=== PATIENT | female | born 1965 | race Caucasian/White ===

== ENCOUNTER 2017-11-07 17:45 | Inpatient (IN) | payer BC ==
[~2017-11-07] VITALS: Ht 162.6 cm; Wt 77.1 kg
--- NOTE | 2017-11-07 17:54 | NUR ---
PT WAS BROUGHT IN BY AMBULANCE W/CC OF OVERDOSE. 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 PT STATED SHE WANTED TO KILL HERSELF AND THAT'S WHY SHE TOOK THE PILLS". PT DROWSY BUT AROUSABLE. PT ALSO COOPERATIVE AND FOLLOWING COMMANDS. SEIZURE AND SUICIDE PRECAUTIONS INITIATED. PERSONAL BELONGINGS REMOVED AND STORED IN RADIO ROOM. [employer] OFFICER GUILLERMO COMPLETED 5150 HOLD. PT GOWNED AND PLACED ON DENTIST. EKG IN PROGRESS. PT AWAITING MSE. WILL CONTINUE TO MONITOR.
--- NOTE | 2017-11-07 18:02 | NUR ---
SPOKE W/PA FROM POISON CONTROL. 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 HOWEVER, IF SHE TOOK THE 50MG PILLS, THEN WE NEED TO MONITOR FOR STRINGING MACHINE OPERATOR DEPRESSION, SHE'S AT HIGHER RISK OF SEIZURES AND QRS WIDENING. IF SHE'S ALERT ENOUGH TO DRINK CHARCOAL, GO AHEAD AND ADMINISTER THAT. OTHERWISE, PLACE HER ON PSYCHOLOGY TECHNICIAN FOR AT LEAST 6HRS, SEIZURE PRECAUTIONS AND TREAT WITH BENZODIAZEPINES IF SHE DOES EXPERIENCE A SEIZURE. ALSO IF HER QRS WIDENING IS MORE THAN 120 MILISECONDS, GO AHEAD AND BOLUS W/SODIUM BICARB. DO AN EKG AND REPEAT IN 4 HOURS".
--- NOTE | 2017-11-07 18:29 | NUR ---
MEDICATE ORDERED. PLEASE SEE EMR. JOSE BRANDO AT BEDSIDE. PT NONVERBAL AT THIS POINT. WILL CONTINUE TO MONITOR.
[2017-11-07 19:05] LABS: BASOPHIL % 1.6 % (0-2)
--- NOTE | 2017-11-07 19:10 | NUR ---
REPORT GIVEN TO RUTHANN LEE FOR CONTINUATION OF CARE PRIMARY RN. JESUS MADE AWARE TO DOCUMENT IV FLUID END TIMES WHEN COMPLETED.
[2017-11-07 19:12] LABS: PLATELET COUNT 491 x10^3mcL (130-400)
[2017-11-07 19:16] LABS: CALCIUM 8.5 mg/dL (8.5-10.1); CHLORIDE SERUM 105 mmol/L (98-107); CREATININE SERUM 0.7 mg/dL (0.6-1.0); GFR1 > 60 mL/min; GLUCOSE SERUM 78 mg/dL (74-106); POTASSIUM SERUM 3.3 mmol/L (3.5-5.1); SODIUM SERUM 145 mmol/L (136-145)
--- NOTE | 2017-11-07 19:16 | NUR ---
RECEIEVED REPORT FROM ROBBY BEAVERS. PT RESTING IN BED, AT BEDSIDE PROVIDING COMFORT. PT RESP E/U, NO DISTRESS NOTED. PT HAS NOT YET SPOKEN BUT CONTINUES TO OPEN EYES SPONTANEOUSLY AND OPEN EYES TO NAME. PT HAS BANANA BAG RUNNING, IV SITE CLEAN, DRY, AND INTACT. PT IN DIRECT SUPERVISION OF NURSES STATION, BED IN LOWEST POSITION, SEIZURE PADS IN PLACE. WILL CONTINUE WITH CURRENT PLAN OF CARE.
[2017-11-07 19:25] LABS: ALBUMIN 3.6 g/dL (3.4-5.0); ALKALINE PHOSPHATASE 98 U/L (46-116); ALT/SGPT 42 U/L (14-59); AST/SGOT 49 U/L (15-37); BILIRUBIN TOTAL 0.1 mg/dL (0.20-1.00); TOTAL PROTEIN, SERUM 7.1 g/dL (6.4-8.2)
--- NOTE | 2017-11-07 19:55 | NUR ---
DR HERNANDEZ CALLED WITH ADMIT ORDERS.
--- NOTE | 2017-11-07 20:01 | NUR ---
PT BECOMING MORE RESPONSIVE AND ATTEMPTING TO SPEAK.
--- NOTE | 2017-11-07 20:03 | NUR ---
PT FAMILY AT BEDSIDE REPORTS PT TAKE TWO UNKNOWN MEDICATIONS FOR DEPRESSION EVERY MORNNING. PT WILL BRING THEM IN.
--- NOTE | 2017-11-07 21:04 | NUR ---
GUSTAVO FROM POISON CONTROL CALLED FOR AN UPDATE AND REQUESTING LAB VALUES. GUSTAVO REPORTS THAT THE PEAK ONSET OF THE BENADRY WOULD BE AROUND NOW, CONTINUE TO MONITOR AND REPEAT EKG NEEDED. PER POISON CONTROL, IF PT IS TO BECOME AGITATED USE BENZODIAZIPINES TO CALM PT. ALSO WATCH FOR DECREASED GUT MOTILITY AND SLOWED GI FUNCTION A RESULT OF BENADRYL OVERDOSE.
--- NOTE | 2017-11-07 21:25 | NUR ---
PT SPOUSE MATT MEDICATIONS AND THE BOTTLE OF BENADRYL PT USED. VERIFIED PILLS WERE 25 MGS EACH.
[2017-11-07] MEDS ORDERED: WELLBUTRIN XL300 M1 PO (21:41)
[2017-11-07] MEDS ORDERED: CYMBALTA60 M1 PO (21:42)
[2017-11-07] MEDS ORDERED: LAMOTRIGINE100 M1 PO (21:42)
[2017-11-07] MEDS ORDERED: NATURE'S BLEND F1 MG PO (21:42)
[2017-11-07] MEDS ORDERED: B-1100 MG PO (21:42)
--- NOTE | 2017-11-07 21:43 | NUR ---
PT BECOMING MORE ALERT, ABLE TO RESPOND WITH SHORT ANSWERS, HOWEVER, BECOMES EASILY DISTRACTED.
--- NOTE | 2017-11-07 22:26 | NUR ---
REPORT CALLED TO RITO BEAVERS TO ASSUME CARE OF PT POST TRANSFER TO TELE UNIT.
[2017-11-07 22:36] VITALS: BP 182/90
--- NOTE | 2017-11-07 23:14 | NUR ---
RECIEVED FROM ER DEPT VIA RONALDO ACCOMPANIED BY ER NURSES WITH CHIEF COMPLAINTS OF BENADRYL OVERDOSAGE/DROWSY UPON ADMISSION TO THE UNIT. PLACED COMFORTABLY IN BED. ROUTINE ADMISSION CARE RENDERED VITAL SIGNS TAKEN AND RECORDED. ON TELE #[address] AT 108/MIN. PATIENT ALERT AND VERBALLY RESPONSIVE, DENEIS ANY PAIN/DISCOMFORT AT THIS TIME, HISBAND AT BEDSIDE VERY SUPPORTIVE OF PATIENT'S PLAN OF CARE. ON 1.1 SITTER, STARTED ON IVF D5NS AT 80CC/HR INFUSING VIA PERIPHERAL LINE AT THE RIGHT FOREARM TOLERATING WELL. WILL CONTINUE TO MONITOR.
--- NOTE | 2017-11-08 01:30 | NUR ---
URINE SPECIMEN COLLECTED FOR UA/UDS AND SENT TO LAB. GORDON PERICARE RENDERED. WILL CONTINUE TO MONITOR.
[2017-11-08 02:44] LABS: UA SPECIFIC GRAVITY 1.015 (1.005-1.035); microscopic required? YES; urine erythrocyte NEGATIVE (NEGATIVE)
[2017-11-08 02:46] LABS: AMPHETAMINE QUAL UR NONE DETECTED (NEG <=1000)
[2017-11-08 05:36] VITALS: BP 167/85
--- NOTE | 2017-11-08 06:21 | NUR ---
UA SHOWS MANY BACTERIA WITH TRACED LEUKOCYTE ESTEARASE, POTASSIUM LEVEL=3.3, DR MARK FOREMAN WAS CALLED [phone], AWAITNG FOR RETURN CALL. PT STILL WITH EPISODES OF ANXIETY/RESTLESSNESS, ATIVAN NOT WORKING, MAINTAINED ON 1;1 SITTER. WILL CONTINUE TO MONITOR.
--- NOTE | 2017-11-08 06:26 | NUR ---
WAS CALLED AGAIN, ABLE TO TALK TO ROB, AND WILL PAGE AGAIN.
--- NOTE | 2017-11-08 06:53 | NUR ---
DR HERNANDEZ CALLED BACK , WITH ORDERED [facility] TO/READ BACK, BUT [facility] [place]OW[place] TO [place]/READBACK , MADE AWARE AND STATED TO TELL DR. HUBBARD TODAY WHEN HE WILL MAKE HIS ROUND. WILL ENDORSE TO AM RN TO FOLLOW UP.
--- NOTE | 2017-11-08 07:15 | NUR ---
PT IN LOW FOELRS. AWAKE, COOPERATIVE OF CARE. UNDER CLOSE OBSERVATION, PT ABLE TO VERBALIZE NEEDS. IV INFUSING WELL D5NS 80ML/HR TO RAC #20. CALL LIGHT WITHIN REACH.
[2017-11-08 09:48] VITALS: BP 153/82
[2017-11-08 10:17] LABS: CALCIUM 8.5 mg/dL (8.5-10.1); CARBON DIOXIDE 24.1 mmol/L (21-32); CHLORIDE SERUM 106 mmol/L (98-107); CREATININE SERUM 0.7 mg/dL (0.6-1.0); GFR1 > 60 mL/min; GLUCOSE SERUM 90 mg/dL (74-106); MAGNESIUM 2.5 mg/dL (1.8-2.4); POTASSIUM SERUM 3.2 mmol/L (3.5-5.1); SODIUM SERUM 142 mmol/L (136-145)
[2017-11-08 10:22] LABS: BASOPHIL % 1.2 % (0-2); PLATELET COUNT 382 x10^3mcL (130-400)
[2017-11-08 10:26] LABS: RED CELL DISTRIBUTION WIDTH 20.2 % (11.5-14.5)
[2017-11-08 10:27] LABS: rbc morphology (normal/abnorm) ABNORMAL (NORMAL)
--- NOTE | 2017-11-08 11:30 | NUR ---
DR. MCDONALD MADE AWARE OF POTASSIUM: 3.2; AND UA RESULTS.
--- NOTE | 2017-11-08 16:15 | NUR ---
CALLED TO AND TOLD THAT SAW PATIENT AND READ TO HIM THE PROGRESS NOTES. HE STATED OKAY TO DISCHARGE PATIENT AND FOLLOW UP WITH HER PCP AND TO CONTINUE HER HOME MEDS.
[2017-11-08 16:33] VITALS: BP 153/82
--- NOTE | 2017-11-08 16:50 | NUR ---
DISCHARGE INSTRUCTIONS GIVEN TO PT AND . BOTH VERBALIZED UNDERSTANDING, IV DC'D CATHETER INTACT. TELE BOX REMOVED. PT ESCORTED OUT OF UNIT SAFELY.
== END 2017-11-08 17:01 | disposition home or self-care (01) | DRG 885 ==
LOC: ED 17:45 → DU 19:57
PROVIDERS: Emergency Medicine; ADMIT Internal Medicine Pulmonary Disease
DX: F33.1 Major depressive disorder, recurrent, moderate (principal); T45.0X2A Poisoning by antiallergic and antiemetic drugs, intentional self-harm, initial encounter; E87.6 Hypokalemia; F10.20 Alcohol dependence, uncomplicated; T51.0X2A Toxic effect of ethanol, intentional self-harm, initial encounter; Y92.018 Other place in single-family (private) house as the place of occurrence of the external cause; Z98.84 Bariatric surgery status
CPT/HCPCS: 83880; G0480; J2060; J3411; J3475; J3490; J7030; J7042

== ENCOUNTER 2018-05-03 23:56 | Inpatient (IN) | payer BC ==
[~2018-05-03] VITALS: Ht 165.1 cm; Wt 74.8 kg
[~2018-05-03 23:56] MED LIST: B-1100 MG PO; CYMBALTA60 M1 PO; LAMOTRIGINE100 M1 PO; NATURE'S BLEND F1 MG PO; WELLBUTRIN XL300 M1 PO
[2018-05-04] VITALS: Ht 165.1 cm; Wt 74.8 kg
[2018-05-04 00:29] LABS: BASOPHIL % 1.4 % (0-2); PLATELET COUNT 386 x10^3mcL (130-400)
[2018-05-04 00:33] LABS: RED CELL DISTRIBUTION WIDTH 19.9 % (11.5-14.5)
[2018-05-04 00:42] LABS: CALCIUM 8.6 mg/dL (8.5-10.1); CARBON DIOXIDE 23.4 mmol/L (21-32); CHLORIDE SERUM 106 mmol/L (98-107); CREATININE SERUM 0.6 mg/dL (0.6-1.0); GFR1 > 60 mL/min; GLUCOSE SERUM 91 mg/dL (74-106); SODIUM SERUM 143 mmol/L (136-145)
[2018-05-04 00:56] LABS: ALKALINE PHOSPHATASE 95 U/L (46-116); ALT/SGPT 45 U/L (14-59); AST/SGOT 56 U/L (15-37); BILIRUBIN TOTAL 0.3 mg/dL (0.20-1.00); TOTAL PROTEIN, SERUM 6.6 g/dL (6.4-8.2)
[2018-05-04 00:57] LABS: ALBUMIN 3.3 g/dL (3.4-5.0)
[2018-05-04] MEDS ORDERED: CYMBALTA60 M1 PO (03:05)
[2018-05-04] MEDS ORDERED: CYMBALTA20 M1 PO (03:07)
[2018-05-04] MEDS ORDERED: LAMICTAL150 MG PO (03:07)
[2018-05-04] MEDS ORDERED: LATANOPROST2.5 ML OU (03:08)
[2018-05-04] MEDS ORDERED: LEXAPRO10 MG (03:08)
[2018-05-04 04:04] LABS: T3 TOTAL 0.96 ng/mL
[2018-05-04 04:26] LABS: PHOSPHOROUS 2.4 mg/dL (2.5-4.9)
[2018-05-04 04:30] LABS: CHOLESTEROL/HDL RATIO 2.3
[2018-05-04 04:40] LABS: FREE T4 0.86 ng/dL (0.76-1.46); FREE THYROXINE INDEX 2.3 ug/dL (1.4-4.5); T4(THYROXINE) 6.7 ug/dL (4.7-13.3)
[2018-05-04 08:05] VITALS: BP 141/76
[2018-05-04 11:40] VITALS: BP 122/63
[2018-05-04 15:46] VITALS: BP 122/80
[2018-05-04 22:36] VITALS: BP 141/63
[2018-05-05 05:36] VITALS: BP 122/63
[2018-05-05 06:26] LABS: CALCIUM 9.1 mg/dL (8.5-10.1); CARBON DIOXIDE 27.4 mmol/L (21-32); CHLORIDE SERUM 108 mmol/L (98-107); CREATININE SERUM 0.6 mg/dL (0.6-1.0); GFR1 > 60 mL/min; GLUCOSE SERUM 85 mg/dL (74-106); MAGNESIUM 2.3 mg/dL (1.8-2.4); PHOSPHOROUS 3.6 mg/dL (2.5-4.9); POTASSIUM SERUM 3.6 mmol/L (3.5-5.1); SODIUM SERUM 144 mmol/L (136-145)
[2018-05-05 07:19] LABS: BASOPHIL % 0.8 % (0-2); PLATELET COUNT 317 x10^3mcL (130-400)
[2018-05-05 07:20] LABS: RED CELL DISTRIBUTION WIDTH 19.1 % (11.5-14.5)
[2018-05-05 09:30] VITALS: BP 130/63
[2018-05-05 13:30] VITALS: BP 139/50
[2018-05-05] MEDS ORDERED: XARELTO20 M1 PO (15:59)
[2018-05-05] MEDS ORDERED: METOPROLOL TART25 M1 PO (16:01)
[2018-05-05] MEDS ORDERED: LIPI10 PO (16:01)
[2018-05-05 16:16] VITALS: BP 139/50
== END 2018-05-05 16:40 | disposition home or self-care (01) | DRG 309 ==
LOC: ED 23:56 → IC 05-04 02:16 → DU 05-04 16:32
PROVIDERS: Emergency Medicine; Family Medicine
DX: I48.91 Unspecified atrial fibrillation (principal); E44.1 Mild protein-calorie malnutrition; F32.9 Major depressive disorder, single episode, unspecified; H40.9 Unspecified glaucoma; I10 Essential (primary) hypertension; F10.20 Alcohol dependence, uncomplicated; Y90.9 Presence of alcohol in blood, level not specified; F17.210 Nicotine dependence, cigarettes, uncomplicated; I16.0 Hypertensive urgency; E78.5 Hyperlipidemia, unspecified; E02 Subclinical iodine-deficiency hypothyroidism; Z53.29 Procedure and treatment not carried out because of patient's decision for other reasons; Z68.27 Body mass index [BMI] 27.0-27.9, adult; Z88.0 Allergy status to penicillin; Z98.84 Bariatric surgery status; Z90.710 Acquired absence of both cervix and uterus; Z90.49 Acquired absence of other specified parts of digestive tract; Z83.3 Family history of diabetes mellitus; Z82.49 Family history of ischemic heart disease and other diseases of the circulatory system; Z80.9 Family history of malignant neoplasm, unspecified; Z71.41 Alcohol abuse counseling and surveillance of alcoholic
CPT/HCPCS: 83880; 84439; J2060; J3490; J7030; J7040; Q0092

== ENCOUNTER 2018-06-05 12:26 | Inpatient (IN) | payer BC ==
[~2018-06-05] VITALS: Ht 162.6 cm; Wt 85.0 kg
[2018-06-05] VITALS (14 sets, daily range): BP systolic 107–170; BP diastolic 51–104
[~2018-06-05 12:26] MED LIST changes: +CYMBALTA20 M1 PO; +LAMICTAL150 MG PO; +LATANOPROST2.5 ML OU; +LEXAPRO10 MG; +LIPI10 PO; +METOPROLOL TART25 M1 PO; +XARELTO20 M1 PO
[2018-06-05 13:10] LABS: microscopic required? NO
[2018-06-05 13:18] LABS: urine erythrocyte NEGATIVE (NEGATIVE)
[2018-06-05 13:44] LABS: AMPHETAMINE QUAL UR NONE DETECTED (See below)
[2018-06-05 13:50] LABS: BASOPHIL % 0.9 % (0-2)
[2018-06-05 13:54] LABS: PLATELET COUNT 557 x10^3mcL (130-400); RED CELL DISTRIBUTION WIDTH 18.6 % (11.5-14.5)
[2018-06-05 13:59] LABS: CALCIUM 8.7 mg/dL (8.5-10.1); CARBON DIOXIDE 22.7 mmol/L (21-32); CHLORIDE SERUM 102 mmol/L (98-107); CREATININE SERUM 0.8 mg/dL (0.6-1.0); GFR1 > 60 mL/min; GLUCOSE SERUM 102 mg/dL (74-106); POTASSIUM SERUM 4.2 mmol/L (3.5-5.1); SODIUM SERUM 138 mmol/L (136-145)
[2018-06-05 14:03] LABS: ALBUMIN 3.4 g/dL (3.4-5.0); ALKALINE PHOSPHATASE 92 U/L (46-116); ALT/SGPT 48 U/L (14-59); AST/SGOT 117 U/L (15-37); TOTAL PROTEIN, SERUM 6.7 g/dL (6.4-8.2)
[2018-06-05 15:30] LABS: MAGNESIUM 1.7 mg/dL (1.8-2.4); PHOSPHOROUS 5.3 mg/dL (2.5-4.9)
[2018-06-05 15:36] LABS: T3 TOTAL 0.71 ng/mL
[2018-06-05 15:37] LABS: CHOLESTEROL/HDL RATIO 3.2
[2018-06-05 16:01] LABS: FREE T4 0.71 ng/dL (0.76-1.46); T4(THYROXINE) 5.9 ug/dL (4.7-13.3)
[2018-06-06] VITALS (23 sets, daily range): BP systolic 94–136; BP diastolic 55–87
[2018-06-06 05:12] LABS: BASOPHIL % 0.1 % (0-2); PLATELET COUNT 367 x10^3mcL (130-400)
[2018-06-06 05:39] LABS: CALCIUM 7.5 mg/dL (8.5-10.1); CHLORIDE SERUM 105 mmol/L (98-107); CREATININE SERUM 0.7 mg/dL (0.6-1.0); GFR1 > 60 mL/min; GLUCOSE SERUM 112 mg/dL (74-106); MAGNESIUM 2.5 mg/dL (1.8-2.4); POTASSIUM SERUM 4.2 mmol/L (3.5-5.1); RED CELL DISTRIBUTION WIDTH 18.7 % (11.5-14.5); SODIUM SERUM 138 mmol/L (136-145)
[2018-06-06] MEDS ORDERED: LAM100 PO (08:05)
[2018-06-06] MEDS ORDERED: VIS25 PO (08:07)
[2018-06-06 15:26] LABS: CALCIUM 7.5 mg/dL (8.5-10.1); CARBON DIOXIDE 27.9 mmol/L (21-32); CHLORIDE SERUM 107 mmol/L (98-107); CREATININE SERUM 0.7 mg/dL (0.6-1.0); GFR1 > 60 mL/min; GLUCOSE SERUM 104 mg/dL (74-106); MAGNESIUM 2.5 mg/dL (1.8-2.4); POTASSIUM SERUM 3.8 mmol/L (3.5-5.1); SODIUM SERUM 140 mmol/L (136-145)
[2018-06-06 19:23] LABS: CALCIUM 7.2 mg/dL (8.5-10.1); CARBON DIOXIDE 24.6 mmol/L (21-32); CHLORIDE SERUM 106 mmol/L (98-107); CREATININE SERUM 0.6 mg/dL (0.6-1.0); GFR1 > 60 mL/min; GLUCOSE SERUM 129 mg/dL (74-106); MAGNESIUM 2.4 mg/dL (1.8-2.4); SODIUM SERUM 138 mmol/L (136-145)
[2018-06-07] VITALS (15 sets, daily range): BP systolic 101–138; BP diastolic 47–99
[2018-06-07 01:46] LABS: CARBON DIOXIDE 29.2 mmol/L (21-32); CHLORIDE SERUM 106 mmol/L (98-107); CREATININE SERUM 0.8 mg/dL (0.6-1.0); GFR1 > 60 mL/min; GLUCOSE SERUM 121 mg/dL (74-106); MAGNESIUM 2.2 mg/dL (1.8-2.4); POTASSIUM SERUM 3.9 mmol/L (3.5-5.1); SODIUM SERUM 138 mmol/L (136-145)
[2018-06-07 08:20] LABS: BASOPHIL % 0.5 % (0-2); PLATELET COUNT 260 x10^3mcL (130-400)
[2018-06-07 08:25] LABS: RED CELL DISTRIBUTION WIDTH 18.8 % (11.5-14.5)
[2018-06-07 08:32] LABS: CALCIUM 7.2 mg/dL (8.5-10.1); CHLORIDE SERUM 107 mmol/L (98-107); CREATININE SERUM 0.8 mg/dL (0.6-1.0); GFR1 > 60 mL/min; GLUCOSE SERUM 107 mg/dL (74-106); MAGNESIUM 2.1 mg/dL (1.8-2.4); POTASSIUM SERUM 4.1 mmol/L (3.5-5.1); SODIUM SERUM 140 mmol/L (136-145)
[2018-06-07 12:58] LABS: CALCIUM 7.2 mg/dL (8.5-10.1); CARBON DIOXIDE 26.3 mmol/L (21-32); CHLORIDE SERUM 107 mmol/L (98-107); CREATININE SERUM 0.7 mg/dL (0.6-1.0); GFR1 > 60 mL/min; GLUCOSE SERUM 93 mg/dL (74-106); MAGNESIUM 1.9 mg/dL (1.8-2.4); POTASSIUM SERUM 4.1 mmol/L (3.5-5.1); SODIUM SERUM 141 mmol/L (136-145)
[2018-06-07 20:15] LABS: CALCIUM 7.7 mg/dL (8.5-10.1); CARBON DIOXIDE 25.3 mmol/L (21-32); CHLORIDE SERUM 106 mmol/L (98-107); CREATININE SERUM 0.7 mg/dL (0.6-1.0); GFR1 > 60 mL/min; GLUCOSE SERUM 136 mg/dL (74-106); MAGNESIUM 1.9 mg/dL (1.8-2.4); POTASSIUM SERUM 3.5 mmol/L (3.5-5.1); SODIUM SERUM 140 mmol/L (136-145)
[2018-06-08 03:39] VITALS: BP 108/55
[2018-06-08 05:40] LABS: BASOPHIL % 1.1 % (0-2); PLATELET COUNT 199 x10^3mcL (130-400)
[2018-06-08 05:41] LABS: RED CELL DISTRIBUTION WIDTH 17.7 % (11.5-14.5)
[2018-06-08 05:57] LABS: CALCIUM 7.1 mg/dL (8.5-10.1); CARBON DIOXIDE 25.1 mmol/L (21-32); CHLORIDE SERUM 104 mmol/L (98-107); CREATININE SERUM 0.6 mg/dL (0.6-1.0); GFR1 > 60 mL/min; GLUCOSE SERUM 87 mg/dL (74-106); MAGNESIUM 1.6 mg/dL (1.8-2.4); PHOSPHOROUS 2.9 mg/dL (2.5-4.9); POTASSIUM SERUM 3.5 mmol/L (3.5-5.1); SODIUM SERUM 137 mmol/L (136-145)
[2018-06-08 07:46] VITALS: BP 132/77
[2018-06-08 08:03] VITALS: Ht 162.6 cm; Wt 85.0 kg
[2018-06-08 11:11] VITALS: BP 143/55
[2018-06-08 17:26] VITALS: BP 122/65
[2018-06-08 21:18] VITALS: BP 148/60
== END 2018-06-09 03:35 | disposition left against medical advice (07) | DRG 917 ==
LOC: ED 12:26 → IC 14:12 → DU 06-08 15:26
PROVIDERS: Emergency Medicine; Internal Medicine
PROC: 5A1945Z Respiratory Ventilation, 24-96 Consecutive Hours (ICD-10-PCS; principal; 2018-06-05)
PROC: 0BH17EZ Insertion of Endotracheal Airway into Trachea, Via Natural or Artificial Opening (ICD-10-PCS; 2018-06-05)
PROC: 06HM33Z Insertion of Infusion Device into Right Femoral Vein, Percutaneous Approach (ICD-10-PCS; 2018-06-06)
DX: T45.0X1A Poisoning by antiallergic and antiemetic drugs, accidental (unintentional), initial encounter (principal); G92 Toxic encephalopathy; J96.00 Acute respiratory failure, unspecified whether with hypoxia or hypercapnia; E44.1 Mild protein-calorie malnutrition; F33.2 Major depressive disorder, recurrent severe without psychotic features; I16.1 Hypertensive emergency; F10.129 Alcohol abuse with intoxication, unspecified; E83.42 Hypomagnesemia; E78.5 Hyperlipidemia, unspecified; G47.00 Insomnia, unspecified; I48.91 Unspecified atrial fibrillation; Y90.9 Presence of alcohol in blood, level not specified; Z91.5 Personal history of self-harm; Z68.29 Body mass index [BMI] 29.0-29.9, adult; Y92.89 Other specified places as the place of occurrence of the external cause
CPT/HCPCS: 36556; 36600; 83880; 84439; 94150; 97116-GP; 97530-GP; A4628; C9113; G0480; J0696; J1642; J1644; J1956; J2001; J2060; J2250; J3010; J3490; J7030; J7620; Q0092

== ENCOUNTER 2020-07-22 16:11 | Inpatient (IN) | payer BC ==
[~2020-07-22] VITALS: Ht 165.1 cm; Wt 74.2 kg
[~2020-07-22 16:11] MED LIST changes: +LAM100 PO; +VIS25 PO
[2020-07-22 16:15] VITALS: Ht 165.1 cm; Wt 74.2 kg
[2020-07-22 16:43] LABS: BASOPHIL % 1.1 % (0-2)
[2020-07-22 16:46] LABS: PLATELET COUNT 464 x10^3mcL (130-400); RED CELL DISTRIBUTION WIDTH 17.6 % (11.5-14.5)
[2020-07-22 17:08] LABS: CALCIUM 8.6 mg/dL (8.5-10.1); CARBON DIOXIDE 27.6 mmol/L (21-32); CHLORIDE SERUM 103 mmol/L (98-107); GFR1 > 60 mL/min; GLUCOSE SERUM 97 mg/dL (74-106); POTASSIUM SERUM 4.3 mmol/L (3.5-5.1); SODIUM SERUM 139 mmol/L (136-145)
[2020-07-22 17:20] LABS: ALBUMIN 3.5 g/dL (3.4-5.0); ALKALINE PHOSPHATASE 74 U/L (46-116); ALT/SGPT 32 U/L (14-59); AST/SGOT 24 U/L (15-37); BILIRUBIN TOTAL 0.3 mg/dL (0.20-1.00); TOTAL PROTEIN, SERUM 6.7 g/dL (6.4-8.2)
[2020-07-22 17:22] LABS: C REACTIVE PROTEIN < 0.2 mg/dL (<=0.9)
[2020-07-22 18:11] LABS: CK-MB 2.6 ng/mL (0-3.6)
[2020-07-22 18:12] LABS: ERYTHROCYTE SED RATE 11 mm/hr (0-30); FREE T4 0.91 ng/dL (0.76-1.46)
--- NOTE | 2020-07-22 18:42 | NUR ---
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
[2020-07-22 18:47] LABS: microscopic required? NO
[2020-07-22 18:58] LABS: urine erythrocyte NEGATIVE (NEGATIVE)
[2020-07-22 19:06] LABS: AMPHETAMINE QUAL UR NONE DETECTED (See below)
[2020-07-22 19:10] LABS: PHOSPHOROUS 2.9 mg/dL (2.5-4.9)
--- NOTE | 2020-07-22 19:14 | NUR ---
REPORT GIVEN TO TELE CHARGE TO ASSUME CARE.
[2020-07-22 19:29] LABS: CHOLESTEROL/HDL RATIO 3.3
--- NOTE | 2020-07-22 19:45 | NUR ---
NOTED PATIET HEART RATE BETWEN 155-179 BPM, NOTIFIED DR. STOVALL.
--- NOTE | 2020-07-22 19:58 | NUR ---
MEDICATED PATIENT WITH DILTIAZEM 20 MG IV. PATIENT HR 94-105 BPM AT THIS TIME, WILL CONTINUE TO MONITOR.
--- NOTE | 2020-07-22 20:12 | NUR ---
NOTIFED DR. STOVALL OF PATIENT VITAL SIGNS, STATES OK TO TRANSFER PATIENT TO TELE FLOOR.
--- NOTE | 2020-07-22 20:17 | NUR ---
CALLED TO MP MONTENEGRO RN FROM TELE FLOOR UPDATE ON PATIENT. SPOKE TO CONNOR BEAVERS EXT. 1098 INFORMED NURSE PATIENT HR ELEVATED AND WAS GIVEN CARDIZEM 20 MG IV, MONITORED FOR 15 MINUTES, INFORMED OF PATIENT VITALS SIGNS, AND PER DR. STOVALL PATIENT OK TO TRANSFER UPSTAIRS TO TELE.
--- NOTE | 2020-07-22 20:35 | NUR ---
RECEIVED PATIENT FROM ER, ALERT AND ORIENTED X4, DENIES CP OR PALPITATIONS. AMBULATE WITH STEADY GAIT TO BATHROOM AND TO BED, SITUATED IN BED. PLACE TELE #9 AFIB WITH HR 79. NO DISTRESS NOTED. ORIENTED TO CALL LIGHT AND WITHIN REACH. CARE ENDORSE TO LAN BEAVERS.
[2020-07-22 20:40] VITALS: BP 139/70
[2020-07-22] MEDS ORDERED: LAMOTRIGINE100 M2 PO (21:02)
--- NOTE | 2020-07-22 21:53 | NUR ---
PT TOLERATED MEDICATIONS WELL, HR CONTROLLED IN THE 80S. PT ASYMPTOMATIC, AWAKE AND ALERT. PT ENCOURAGED TO USE CALL LIGHT IF NEEDING ASSISTANCE OR NOT FEELING WELL. WILL CONTINUE TO MONITOR.
--- NOTE | 2020-07-23 03:16 | NUR ---
PTS HEART RATE HAS REMAINED STABLE, CURRENT HR 80S-90S.
[2020-07-23 05:24] VITALS: BP 114/72
--- NOTE | 2020-07-23 06:04 | NUR ---
PT SLEPT IN INTERVALS THROUGHOUT THE NIGHT, REMAINED STABLE NO SIGNIFICANT CHANGES. HR CONTROLLED. NO REPORTS OF PAIN DURING THIS SHIFT. PT HAS NO CONCERNS AT THIS TIME. CALL LIGHT IN REACH, ENCOURAGED TO USE IF ASSISTANCE IS NEEDED. ALL NEEDS WERE MET DURING THIS SHIFT. WILL ENDORSE CARE TO AM RN. WILL CONTINUE TO MONITOR.
[2020-07-23 07:41] LABS: BASOPHIL % 0.4 % (0-2); PLATELET COUNT 321 x10^3mcL (130-400)
[2020-07-23 07:52] LABS: CALCIUM 8.1 mg/dL (8.5-10.1); CARBON DIOXIDE 27.5 mmol/L (21-32); CHLORIDE SERUM 107 mmol/L (98-107); CREATININE SERUM 0.8 mg/dL (0.6-1.0); GFR1 > 60 mL/min; GLUCOSE SERUM 75 mg/dL (74-106); MAGNESIUM 2.2 mg/dL (1.8-2.4); PHOSPHOROUS 3.6 mg/dL (2.5-4.9); POTASSIUM SERUM 3.6 mmol/L (3.5-5.1); SODIUM SERUM 142 mmol/L (136-145)
[2020-07-23 08:24] LABS: RED CELL DISTRIBUTION WIDTH 17.5 % (11.5-14.5)
[2020-07-23 08:56] VITALS: BP 136/69
[2020-07-23 12:49] VITALS: BP 105/48
--- NOTE | 2020-07-23 13:19 | NUR ---
PATIENT IS A 54 YEAR OLD FEMALE ADMITTED TO [facility] FOR PALPITATIONS THAT LASTED TWO DAYS. PATIENT IS ON TELE # 9 RYTHM AT [facility] HR WITHIN NORMAL RANGE. MEDICATIONS SCHEDULED GIVEN THIS AM. PATIENT REQUESTED IV TO BE REMOVED AT 1200. IT WAS DC PER HER REQUEST, IT WAS EXPLAINED WHY WE NEED IT ALTHOUGH SHE IS NOT ON ANY IV MEDICATIONS. SHE IS REFUSING REPLACEMENT FOR NOW BECAUSE SHE IS WAITING TO BE DC. PER MD NOTED CARDIAC CLEARANCE IS HOLDING UP DC AT THIS TIEM. WAITING FOR HIM TO ROUND AND ORDER TO BE PLACED. I WILL INFORM PATIENT I AM MADE AWARE. NO S/S OF DISTRESS THROUGHOUT SHIFT AT THIS TIME PATEINT REMAINS STABLE.
--- NOTE | 2020-07-23 15:54 | NUR ---
UPDATE: PATIENT WANTS TO LEAVE AMA CARDIO SAW PATIENT NO ADJUSTMENT TO MEDICATIONS AT THIS TIME, MD DOING DC NOTE, RN DC NOTE DONE, IV DC PENDING DC PAPERWORK PATIENT CAN LEAVE.
[2020-07-23] MEDS ORDERED: LIPITOR20 MG PO (16:04)
[2020-07-23] MEDS ORDERED: LOPRESSOR50 M1 PO (16:04)
[2020-07-23] MEDS ORDERED: ASPIRIN ADULT L81 M3 PO (16:06)
[2020-07-24 14:47] LABS: T3 TOTAL 0.99 ng/mL
== END 2020-07-23 16:15 | disposition home or self-care (01) | DRG 310 ==
LOC: ED 16:11 → DU 18:03
PROVIDERS: Specialist; ADMIT Internal Medicine; ATTEND Internal Medicine
DX: I48.91 Unspecified atrial fibrillation (principal); F17.210 Nicotine dependence, cigarettes, uncomplicated; F41.9 Anxiety disorder, unspecified; K21.9 Gastro-esophageal reflux disease without esophagitis; Z20.828 Contact with and (suspected) exposure to other viral communicable diseases; E78.5 Hyperlipidemia, unspecified; Z88.0 Allergy status to penicillin; Z90.49 Acquired absence of other specified parts of digestive tract; Z90.711 Acquired absence of uterus with remaining cervical stump; Z83.3 Family history of diabetes mellitus; Z82.49 Family history of ischemic heart disease and other diseases of the circulatory system
CPT/HCPCS: 83880; 84439; 99406; G0378; G0480; J1650; J3490; J7030; Q0092